=== PATIENT | female | born 1985 ===

== ENCOUNTER 2017-02-10 15:49 | Emergency (ER) | payer MEDICAID ==
[2017-02-10 16:15] VITALS: TEMP 98.5; O2SAT 99
--- NOTE | 2017-02-10 16:25 | ED PDOC ---
HPI: General Adult Time Seen by Provider: 02/10/17 16:14 Chief Complaint (Nursing): Trauma Chief Complaint (Provider): fall down stairs "i may have passed out" History Per: Patient History/Exam Limitations: no limitations Current Symptoms Are (Timing): Still Present Severity: Moderate Additional Complaint(s): 31yo female w/ Hx absent seizures was going up stairs at home when she passed out and fell down a full flight of stairs. States poor recall of events. She was able to ambulate afterwards but with significant pain to left arm, left abdomen, left hip area. Also complains of neck pain and mild headache. Hx is significant for gastric sleeve performed 5 weeks ago. Past Medical History Reviewed: Historical Data, Nursing Documentation, Vital Signs Vital Signs: Last Vital Signs Temp 98.5 F 02/10/17 16:11 Pulse 79 02/10/17 19:27 Resp 16 02/10/17 18:00 BP 128/75 02/10/17 18:00 Pulse Ox 99 02/10/17 21:31 - Medical History PMH: Anxiety, Asthma, Bipolar Disorder, HTN, Seizures (absent seizures, taking Depakote) - Surgical History Surgical History: Cholecystectomy, (x3) Other surgeries: gastric sleeve - Family History Family History: States: [place], CAD (mother diagnosed in her 20s), Diabetes, Hypertension - Home Medications Home Medications: Ambulatory Orders Medication Instructions Recorded Atenolol [Tenormin] 1 tab PO DAILY 08/28/16 Divalproex Sodium [Divalproex 1 tab PO BID 08/28/16 Sodium ER] FLUoxetine [Prozac] 40 mg PO DAILY 08/28/16 Lorazepam [Ativan] 0.5 mg PO PRN PRN 08/28/16 Omeprazole 1 tab PO DAILY 08/28/16 Terbinafine HCl [Lamisil] 1 tab PO DAILY 08/28/16 Acetaminophen/Hydrocodone Bi 1 tab PO Q8 #6 tab 10/10/16 [Vicodin 300 mg-5 mg] Cyclobenzaprine [Cyclobenzaprine 10 mg PO BID #15 tab 10/10/16 HCl] Acetaminophen [Shake That Ache] 2 tab PO Q8H #50 tablet 11/28/16 Cyclobenzaprine [Cyclobenzaprine 10 mg PO TID #30 tab 11/28/16 HCl] Acetaminophen/Hydrocodone Bi 1 tab PO Q8 #12 tab 02/10/17 [Vicodin 300 mg-5 mg] Ibuprofen [Motrin Tab] 600 mg PO Q6 #30 tab 02/10/17 - Allergies Allergies/Adverse Reactions: Allergies Allergy/AdvReac Type Severity Reaction Status Date / Time lamotrigine Allergy URTICARIA Verified 02/10/17 16:09 Review of Systems ROS Statement: Except As Marked, All Systems Reviewed And Found Negative Gastrointestinal: Positive for: Abdominal Pain Musculoskeletal: Positive for: Neck Pain, Arm Pain, Other (hip pain) Neurological: Positive for: Headache Physical Exam - Reviewed Nursing Documentation Reviewed: Yes Vital Signs Reviewed: Yes - Physical Exam Appears: Positive for: Non-toxic, No Acute Distress Head Exam: Positive for: ATRAUMATIC (No sign of head injury), NORMAL INSPECTION , NORMOCEPHALIC Skin: Positive for: Warm, Dry Eye Exam: Positive for: EOMI, PERRL Neck: Positive for: Painless ROM (+ mild tenderness to lower C-spine), Supple Cardiovascular/Chest: Positive for: Regular Rate, Rhythm Respiratory: Positive for: Normal Breath Sounds. Negative for: Rales, Rhonchi, Wheezing Gastrointestinal/Abdominal: Positive for: Soft, Tenderness (left side of abdomen ). Negative for: Guarding, Rebound Extremity: Positive for: Normal ROM (Full ROM to feet & ankles), Tenderness ( left shoulder, left forearm, left hip, left wrist) - Laboratory Results Result Diagrams: 02/10/17 16:20 02/10/17 16:20 - ECG ECG: Positive for: Interpreted By Me, Viewed By Me ECG Rhythm: Positive for: Sinus Rhythm. Negative for: ST/T Changes Rate: 79 O2 Sat by Pulse Oximetry: 99 (RA) Pulse Ox Interpretation: Normal Medical Decision Making Medical Decision Makin: CT Chest, Abdomen, Pelvis w/ IV contrast ordered emergently. CT C-Spine w/o, CT Head w/o, EKG, labs, XR Left Femur, XR Left Elbow, XR Left forearm, XR left hand , XR Left shoulder, XR Left wrist, XR Left humerus ordered. Morphine 2mg IV given. 1730 CT Head w/o Impression No acute intracranial pathology identified. 174 CT C-Spine w/o Impression: No evidence of acute displaced fracture or subluxation at the cervical spine. No evidence of prevertebral soft tissue swelling. 175 CT Chest/Abdomen/Pelvis w/ IV contrast Impression: No acute traumatic pathology identified. Limited study as above. Hepatic steatosis. Cholecystectomy. Evidence of prior gastric surgery. Probable 19 mm left ovarian cyst. 1899 XR reviewed by me. No fracture seen on my review. Patient still complains of back pain and left abdominal pain. Will keep in ED for observation and further medication. Total CK ordered. Will endorse to Dr. Wong to reevaluate and consider admitting for intractable pain vs potential discharge. Disposition - Clinical Impression Clinical Impression: Trauma - Patient ED Disposition Is Patient to be Admitted: Transfer of Care - Disposition Referrals: Salvador Lucero MD [Family Provider] - Disposition: Transfer of Care Disposition Time: 19:00 Condition: STABLE Prescriptions: Acetaminophen/Hydrocodone Bi [Vicodin 300 mg-5 mg] 1 tab PO Q8 #12 tab Ibuprofen [Motrin Tab] 600 mg PO Q6 #30 tab Instructions: Narcotic Pain Management (ED), Contusion in Adults (DC), Fall Prevention (ED) Patient Signed Over To: Christian Wong Handoff Comments: pending re-eval and dispo Additional Comments - Additional Comments Additional Comments: Scribe Attestation: Documented by Rios Pereyra acting as a scribe for Tracey Eldridge DO. Provider Scribe Attestation: All medical record entries made by the Scribe were at my direction and personally dictated by me. I have reviewed the chart and agree that the record accurately reflects my personal performance of the history, physical exam, medical decision making, and the department course for this patient. I have also personally directed, reviewed, and agree with the discharge instructions and disposition.
[2017-02-10] MEDS ORDERED: Iohexol 300 100 ML IJ ONE (16:26)
[2017-02-10] MEDS ORDERED: Sodium Chloride 0.9% 50 ML IV ONE (16:26)
[2017-02-10 16:31] LABS: BASO % 0.7 % (0.0-2.0); EOS # 0.1 K/uL (0.0-0.7); EOS % 1.8 % (0.0-4.0); HEMATOCRIT 36.5 % (34.0-47.0); LYMPH # 1.6 K/uL (1.0-4.3); LYMPH % 29.4 % (20.0-40.0); MEAN CELL VOLUME 81.4 fl (81.0-99.0); MEAN CORPUSCULAR HEMOGLOBIN 25.9 pg (27.0-31.0); MEAN CORPUSCULAR HGB CONC 31.8 g/dL (33.0-37.0); MEAN PLATELET VOLUME 10.6 fl (7.2-11.7); MONO # 0.4 K/uL (0.0-0.8); MONO % 7.7 % (0.0-10.0); NEUT # 3.2 K/uL (1.8-7.0); NEUT % 60.4 % (50.0-75.0); NRBC % 0.1 % (0.0-0.0); RED CELL DISTRIBUTION WIDTH 18.8 % (11.5-14.5); WHITE BLOOD COUNT 5.3 K/uL (4.8-10.8)
[2017-02-10 16:39] VITALS: PULSE 79
[2017-02-10 16:40] LABS: CHLORIDE 109 mmol/L (98-107); SODIUM 140 mmol/l (132-148)
[2017-02-10 16:41] LABS: POTASSIUM 4.3 MMOL/L (3.6-5.0)
[2017-02-10 16:42] LABS: GFR AFRICAN-AMERICAN > 60
[2017-02-10 16:43] LABS: ALB/GLOB RATIO 1.2 (1.0-2.1); ALKALINE PHOSPHATASE 93 U/L (38-126); AST/SGOT 48 U/L (14-36); BILIRUBIN,TOTAL 0.5 mg/dl (0.2-1.3); BLOOD UREA NITROGEN 14 mg/dl (7-17); CALCIUM 9.5 mg/dL (8.4-10.2); CARBON DIOXIDE 20 mmol/L (22-30); GLUCOSE,RANDOM 89 mg/dL (65-105)
[2017-02-10 16:44] LABS: ALT/SGPT 80 U/L (9-52)
[2017-02-10 16:55] LABS: PARTIAL THROMBOPLASTIN TIME 24.7 SECONDS (23.3-32.5)
--- NOTE | 2017-02-10 17:28 | CT ---
PROCEDURE: CT HEAD WITHOUT CONTRAST. HISTORY: r/o ICH COMPARISON: None available. TECHNIQUE: Axial computed tomography images were obtained through the head/brain without intravenous contrast. Radiation dose: Total exam DLP = 843.16 mGy-cm. This CT exam was performed using one or more of the following dose reduction techniques: Automated exposure control, adjustment of the mA and/or kV according to patient size, and/or use of iterative reconstruction technique. FINDINGS: HEMORRHAGE: No intracranial hemorrhage. BRAIN: No mass effect or edema. No atrophy or chronic microvascular ischemic changes.Please note that MRI with diffusion imaging is more sensitive in the detection of acute ischemic event. VENTRICLES: No hydrocephalus. CALVARIUM: Unremarkable. PARANASAL SINUSES: Unremarkable as visualized. No significant inflammatory changes. MASTOID AIR CELLS: Unremarkable as visualized. No inflammatory changes. OTHER FINDINGS: None. IMPRESSION: No acute intracranial pathology identified.
--- NOTE | 2017-02-10 17:43 | CT ---
PROCEDURE: CT Cervical Spine without contrast HISTORY: Trauma pole of fracture fold down stairs COMPARISON: None available. TECHNIQUE: Axial computed tomography images were obtained of the cervical spine without the use of intravenous contrast. Coronal and sagittal reformatted images were created and reviewed. Radiation dose: Total exam DLP = 671.68 mGy-cm. This CT exam was performed using one or more of the following dose reduction techniques: Automated exposure control, adjustment of the mA and/or kV according to patient size, and/or use of iterative reconstruction technique. FINDINGS: VERTEBRAE: No fracture. Normal alignment. No destructive bony lesion. DISCS/SPINAL CANAL/NEURAL FORAMINA: No significant central canal or neural foraminal stenosis. Discs heights are grossly preserved. PARASPINAL SOFT TISSUES: Unremarkable. OTHER FINDINGS: None. IMPRESSION: No evidence of acute displaced fracture or subluxation at the cervical spine. No evidence of prevertebral soft tissue swelling.
--- NOTE | 2017-02-10 17:50 | CT ---
CT chest, abdomen, and pelvis without IV contrast Indication: fall down stairs, L abd pain; recent gastric sleev Technique: Contiguous axial images of the chest, abdomen, and pelvis without oral or IV contrast. Coronal and Sagittal reformats generated and reviewed. This CT exam was performed using 1 or more of the falling dose reduction techniques: Automated exposure control, adjustment of the MAA and/or kV according to patient size, and/or use of iterative reconstruction technique. Radiation dose: Total exam DLP = 1452.41 MGy-cm. Comparison: None available Findings: Examination limited due to patient inability to elevate arms resulting in streak artifact. Visualized portions of the inferior thyroid gland appear unremarkable. The unenhanced mediastinal and hilar vascular structures appear grossly unremarkable. The heart appears within normal limits of size. Bibasilar atelectasis. No pleural effusion. No pneumothorax. No suspicious pulmonary nodules measuring greater than 5 mm. Hypoattenuation of the liver compatible with hepatic steatosis. Cholecystectomy. The noncontrast liver, spleen, kidneys, pancreas, and adrenal glands appear otherwise unremarkable. The stomach is nondistended. Evidence of prior gastric surgery. Lack of oral contrast limits evaluation for bowel pathology. The bowel loops appear within normal limits of caliber without evidence of intestinal obstruction. The appendix appears within normal limits of caliber. No secondary signs of acute appendicitis. There is no definite free air. Uterus is present. Probable left adnexal cyst measuring approximately 19 mm, likely ovarian in etiology. The urinary bladder appears unremarkable. Small fat containing umbilical hernia. No acute osseous abnormality is detected. Impression: No acute traumatic pathology identified. Limited study as above. Hepatic steatosis. Cholecystectomy. Evidence of prior gastric surgery. Probable 19 mm left ovarian cyst. Additional incidental findings as above.
[2017-02-10 18:52] VITALS: BP 128/75; RESP 16
--- NOTE | 2017-02-10 19:33 | ED PDOC ---
- Laboratory Results Result Diagrams: 02/10/17 16:20 02/10/17 16:20 - ECG O2 Sat by Pulse Oximetry: 99 (RA) Pulse Ox Interpretation: Normal Medical Decision Making Medical Decision Makin signed over to me by Tracey Eldridge DO pending reevaluation. 2125 Patient is feeling much better. Will prescribe short course of opioids for pain management. Discussed risks including potential for addiction. Discussed alternatives including motrin & tylenol. Searched patient in [place], [place] and surrounding states checked, reference # [id number]. Patient will follow up for further care with PMD by the end of the week. Disposition - Clinical Impression Clinical Impression: Trauma - POA Present On Arrival: None - Disposition Referrals: Salvador Lucero MD [Family Provider] - Disposition: Routine/Home Disposition Time: 21:31 Condition: STABLE Prescriptions: Acetaminophen/Hydrocodone Bi [Vicodin 300 mg-5 mg] 1 tab PO Q8 #12 tab Ibuprofen [Motrin Tab] 600 mg PO Q6 #30 tab Instructions: Narcotic Pain Management (ED), Contusion in Adults (DC), Fall Prevention (ED) Additional Comments - Additional Comments Additional Comments: Scribe Attestation: Documented by Rios Pereyra acting as a scribe for Shola Wong MD. Provider Scribe Attestation: All medical record entries made by the Scribe were at my direction and personally dictated by me. I have reviewed the chart and agree that the record accurately reflects my personal performance of the history, physical exam, medical decision making, and the department course for this patient. I have also personally directed, reviewed, and agree with the discharge instructions and disposition.
--- NOTE | 2017-02-11 11:44 | CARD ---
APPROVED REPORT EKG Measurement Heart [id number] <Conclusion> Normal sinus rhythm Normal ECG
--- NOTE | 2017-02-11 12:56 | RAD ---
PROCEDURE: Radiographs of the left humerus. HISTORY: fall COMPARISON: Comparison made with concurrent radiographs left shoulder FINDINGS: BONES: Normal. No fracture or focal lesion. SOFT TISSUES: Normal. OTHER FINDINGS: None. IMPRESSION: Normal radiographs of left humerus.
--- NOTE | 2017-02-11 13:01 | RAD ---
PROCEDURE: Radiographs of the Left Shoulder HISTORY: fall trauma COMPARISON: Concurrent radiographs left humerus and prior radiographs left shoulder 11/28/2016 FINDINGS: BONES: Normal. No fracture. JOINTS: Normal. Glenohumeral and acromioclavicular joints preserved. No osteoarthritis. SOFT TISSUES: Normal. OTHER FINDINGS: None. IMPRESSION: Normal radiographs of the left shoulder.
--- NOTE | 2017-02-11 13:02 | RAD ---
PROCEDURE: Left femur. HISTORY: fall trauma COMPARISON: Comparison made with radiographs of pelvis left hip 11/28/2016. TECHNIQUE: AP and lateral views of the left femur performed FINDINGS: . No evidence of acute displaced fracture nor dislocation. The osseous structures appear intact. Left femoral head is appropriately located within the left acetabulum. No significant osteoarthritis. No radiopaque foreign body seen within the soft tissues. Note made of opacifications urinary bladder secondary to prior injection of contrast material for CT scan chest abdomen pelvis obtained earlier same day. IMPRESSION: No fracture seen. Reason
--- NOTE | 2017-02-11 13:04 | RAD ---
PROCEDURE: Radiographs of the left elbow. HISTORY: fall trauma COMPARISON: Comparison made with the concurrent radiographs of the left forearm and left humerus. FINDINGS: BONES: Normal. No fracture. JOINTS: Normal. No osteoarthritis. SOFT TISSUES: Normal. JOINT EFFUSION: None. OTHER FINDINGS: None IMPRESSION: Unremarkable radiographs of the left elbow.
--- NOTE | 2017-02-11 13:09 | RAD ---
PROCEDURE: Radiographs of the Left Forearm HISTORY: fall trauma COMPARISON: Comparison made with concurrent radiographs of the left wrist and left elbow. TECHNIQUE: Frontal and lateral views obtained. FINDINGS: BONES: No fracture or destructive lesion. JOINT SPACES: Unremarkable. OTHER FINDINGS: None. IMPRESSION: Unremarkable radiographs of the left forearm.
--- NOTE | 2017-02-11 13:15 | RAD ---
PROCEDURE: Left Hand Radiographs. HISTORY: fall trauma COMPARISON: NoneComparison made with concurrent radiographs of the left wrist the. FINDINGS: BONES: Normal. No fracture. JOINTS: Normal. No osteoarthritic changes. SOFT TISSUES: Normal. OTHER FINDINGS: None. IMPRESSION: No acute fracture seen. If symptoms persist or occult fracture suspected clinically well, consider repeat radiographs in 5-10 days as most fractures should become radiographically evident in this timeframe
--- NOTE | 2017-02-11 13:20 | RAD ---
PROCEDURE: Left Wrist Radiographs. HISTORY: fall trauma COMPARISON: None. FINDINGS: BONES: Normal. No fracture. JOINTS: Normal. No dislocation. SOFT TISSUES: Normal. OTHER FINDINGS: None. IMPRESSION: No acute displaced fracture nor dislocation. If symptoms persist or occult fracture suspected clinically recommend repeat radiographs in 5-10 days as most fractures should become radiographically evident in this timeframe.
== END 2017-02-10 21:51 | disposition home or self-care (01) ==
LOC: H.ER 15:49
DX: S69.92XA Unspecified injury of left wrist, hand and finger(s), initial encounter (principal); M25.552 Pain in left hip; M54.2 Cervicalgia; R51 Headache; M79.602 Pain in left arm; W10.9XXA Fall (on) (from) unspecified stairs and steps, initial encounter; Y92.89 Other specified places as the place of occurrence of the external cause; F31.9 Bipolar disorder, unspecified; F41.9 Anxiety disorder, unspecified; I10 Essential (primary) hypertension; J45.909 Unspecified asthma, uncomplicated; N83.202 Unspecified ovarian cyst, left side

== ENCOUNTER 2017-03-28 12:46 | Emergency (ER) | payer MEDICAID ==
[2017-03-28 12:57] VITALS: BP 141/103; PULSE 89; RESP 16; TEMP 98; O2SAT 100
--- NOTE | 2017-03-28 15:01 | ED PDOC ---
HPI: Psych/Substance Abuse Time Seen by Provider: 03/28/17 12:46 Chief Complaint (Nursing): Psychiatric Evaluation Chief Complaint (Provider): Psychiatric Evaluation History Per: Patient History/Exam Limitations: no limitations Onset/Duration Of Symptoms: Days (x4 months) Current Symptoms Are (Timing): Still Present Additional Complaint(s): Jess Moulton is a 32 year old female with a previous history of bipolar depression, who presents to the emergency department for a psychiatric evaluation after referred by a friend who knew this hospital provided psychiatric help because her appointment is one month from now. She reports "feeling off", angry and aggressive. States she had not been compliant with medications after her last visit with psychiatrist due to work complications. Patient lives with her mother and states mother does not understand she has a problem and agitates her. Denies suicidal or homicidal ideation. Of note, patient takes Prozac 20mg three times a day and Klonopin 1mg once daily (Has been on medication for one year). Psychiatrist: Rosalino Hutchins MD Past Medical History Reviewed: Historical Data, Nursing Documentation, Vital Signs Vital Signs: Last Vital Signs Temp 98.0 F 03/28/17 12:50 Pulse 89 03/28/17 12:50 Resp 16 03/28/17 12:50 BP 141/103 H 03/28/17 12:50 Pulse Ox 100 03/28/17 12:50 - Medical History PMH: Anxiety, Asthma, Bipolar Disorder, HTN, Seizures (absent seizures, taking Depakote) Denies: Diabetes, Hepatitis, HIV, Sexually Transmitted Disease - Surgical History Surgical History: Cholecystectomy, (x3) - Family History Family History: States: [place], CAD (mother diagnosed in her 20s), Diabetes, Hypertension - Living Arrangements Living Arrangements: With Family - Social History Current smoker - smoking cessation education provided: No Alcohol: None Drugs: Denies - Home Medications Home Medications: Ambulatory Orders Medication Instructions Recorded Atenolol [Tenormin] 1 tab PO DAILY 08/28/16 Divalproex Sodium [Divalproex 1 tab PO BID 08/28/16 Sodium ER] FLUoxetine [Prozac] 40 mg PO DAILY 08/28/16 Lorazepam [Ativan] 0.5 mg PO PRN PRN 08/28/16 Omeprazole 1 tab PO DAILY 08/28/16 Terbinafine HCl [Lamisil] 1 tab PO DAILY 08/28/16 Acetaminophen/Hydrocodone Bi 1 tab PO Q8 #6 tab 10/10/16 [Vicodin 300 mg-5 mg] Cyclobenzaprine [Cyclobenzaprine 10 mg PO BID #15 tab 10/10/16 HCl] Acetaminophen [Shake That Ache] 2 tab PO Q8H #50 tablet 11/28/16 Cyclobenzaprine [Cyclobenzaprine 10 mg PO TID #30 tab 11/28/16 HCl] Acetaminophen/Hydrocodone Bi 1 tab PO Q8 #12 tab 02/10/17 [Vicodin 300 mg-5 mg] Ibuprofen [Motrin Tab] 600 mg PO Q6 #30 tab 02/10/17 - Allergies Allergies/Adverse Reactions: Allergies Allergy/AdvReac Type Severity Reaction Status Date / Time lamotrigine Allergy URTICARIA Verified 02/10/17 16:09 Review of Systems ROS Statement: Except As Marked, All Systems Reviewed And Found Negative Psych: Positive for: Other (Mood: angry and feels aggressive at times). Negative for: Suicidal ideation (denies suicidal ideation along with homicidal ideation) Physical Exam - Reviewed Nursing Documentation Reviewed: Yes Vital Signs Reviewed: Yes - Physical Exam Head Exam: Positive for: ATRAUMATIC, NORMAL INSPECTION, NORMOCEPHALIC Skin: Positive for: Normal Color, Warm, Dry Neck: Positive for: Normal, Painless ROM, Supple Neurologic/Psych: Positive for: Alert, Oriented - ECG O2 Sat by Pulse Oximetry: 100 (RA) Pulse Ox Interpretation: Normal Medical Decision Making Medical Decision Making: Initial Impression: Psychiatric Evaluation Initial Plan: --Klonopin 1mg PO --Reevaluation Time: 15:01 Upon provider reevaluation patient is medically stable, and requires no further treatment in the ED at this time. Patient will be discharged home. Counseling was provided and all questions were answered regarding diagnosis and need for follow up with psychiatrist and [facility] LOCATED AT [address] [place] [address] ([phone]). There is agreement to discharge plan. Return if symptoms persist or worsen. Clinical Impression: Anxiety Scribe Attestation: Documented by Manjula Veloz acting as a scribe for ABRIL Adams. Scribe Attestation: All medical record entries made by the Scribe were at my direction and personally dictated by me. I have reviewed the chart and agree that the record accurately reflects my personal performance of the history, physical exam, medical decision making, and the department course for this patient. I have also personally directed, reviewed, and agree with the discharge instructions and disposition. Disposition - Clinical Impression Clinical Impression: Anxiety - Patient ED Disposition Is Patient to be Admitted: No Doctor Will See Patient In The: Office Counseled Patient/Family Regarding: Diagnosis, Rx Given - Disposition Disposition: Routine/Home Disposition Time: 15:01 Condition: FAIR Additional Instructions: FOLLOW UP AT [facility] LOCATED AT [address] [place] [address] Instructions: Anxiety (ED)
== END 2017-03-28 15:28 | disposition home or self-care (01) ==
LOC: H.ER 12:46
DX: F41.9 Anxiety disorder, unspecified (principal)

== ENCOUNTER 2017-05-03 20:21 | Emergency (ER) | payer MEDICAID ==
[2017-05-03 20:37] VITALS: O2SAT 100
[2017-05-03] MEDS ORDERED: Sodium Chloride 0.9% 1,000 ML IV STA (21:04)
--- NOTE | 2017-05-03 21:18 | ED PDOC ---
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 Patient reports having an argument with her mother when she left the house for a walk. Patient recalls starting to light a cigarette but the next thing she remembers is waking up on the floor with headache and lower back pain. Upon waking, she felt dizzy and disoriented but denies tongue biting or incontinence. Headache is left sided and "achy" with no associated visual disturbances or focal weakness. Back pain starts in the left lumbar area and radiates posteriorly to the left foot, "sharp " in quality and exacerbated by movement. Patient reports seizures varying between grand mal and absence. Her last seizure episode occurred 2 months ago. She has been taking depakote as prescribed by her neurologist. <Harpreet Kelsey - Last Filed: 05/03/17 23:21> <Adalberto Gonzalez - Last Filed: 05/03/17 23:28> Time Seen by Provider: 05/03/17 20:36 Chief Complaint (Nursing): Syncope Supervising Attending Note - Supervising Attending Note The Documented history was done by the: Physician Site Administrator The documented physical exam was done by the: Physician Site Administrator The documented procedures were done by the: Physician Site Administrator - Attestation: I have personally seen and examined this patient.: Yes I have fully participated in the care of the patient.: Yes I have reviewed all pertinent clinical information: Yes - Notes: Notes:: Syncope episode. No chest pain, dyspnea, weakness. Pain lumbar. <Adalberto Gonzalze - Last Filed: 05/03/17 23:28> Past Medical History Vital Signs: Last Vital Signs Temp 98 F 05/03/17 20:31 Pulse 104 H 05/03/17 20:31 Resp 18 05/03/17 20:31 BP 148/71 05/03/17 20:31 Pulse Ox 100 05/03/17 20:31 - Medical History PMH: Anxiety, Asthma, Bipolar Disorder, HTN, Seizures (absent seizures, taking Depakote) Denies: Diabetes, Hepatitis, HIV, Sexually Transmitted Disease - Surgical History Surgical History: Cholecystectomy, (x3) - Family History Family History: States: [place], CAD (mother diagnosed in her 20s), Diabetes, Hypertension <Harpreet Kelsey - Last Filed: 05/03/17 23:21> Vital Signs: Last Vital Signs Temp 98 F 05/03/17 20:31 Pulse 104 H 05/03/17 20:31 Resp 18 05/03/17 20:31 BP 148/71 05/03/17 20:31 Pulse Ox 100 05/03/17 23:22 <Adalberto Gonzalez - Last Filed: 05/03/17 23:28> - Home Medications Home Medications: Ambulatory Orders Medication Instructions Recorded Atenolol [Tenormin] 1 tab PO DAILY 08/28/16 Divalproex Sodium [Divalproex 1 tab PO BID 08/28/16 Sodium ER] FLUoxetine [Prozac] 40 mg PO DAILY 08/28/16 Lorazepam [Ativan] 0.5 mg PO PRN PRN 08/28/16 Omeprazole 1 tab PO DAILY 08/28/16 Terbinafine HCl [Lamisil] 1 tab PO DAILY 08/28/16 Acetaminophen/Hydrocodone Bi 1 tab PO Q8 #6 tab 10/10/16 [Vicodin 300 mg-5 mg] Cyclobenzaprine [Cyclobenzaprine 10 mg PO BID #15 tab 10/10/16 HCl] Acetaminophen [Shake That Ache] 2 tab PO Q8H #50 tablet 11/28/16 Cyclobenzaprine [Cyclobenzaprine 10 mg PO TID #30 tab 11/28/16 HCl] Acetaminophen/Hydrocodone Bi 1 tab PO Q8 #12 tab 02/10/17 [Vicodin 300 mg-5 mg] Ibuprofen [Motrin Tab] 600 mg PO Q6 #30 tab 02/10/17 - Allergies Allergies/Adverse Reactions: Allergies Allergy/AdvReac Type Severity Reaction Status Date / Time ketorolac [From Toradol] Allergy URTICARIA Verified 05/03/17 21:19 lamotrigine Allergy URTICARIA Verified 02/10/17 16:09 Review of Systems Constitutional: Negative for: Fever, Chills Eyes: Negative for: Vision Change Cardiovascular: Positive for: Chest Pain. Negative for: Edema Respiratory: Negative for: Cough, Shortness of Breath, Wheezing Gastrointestinal: Negative for: Nausea, Vomiting, Abdominal Pain, Diarrhea Psych: Positive for: Anxiety. Negative for: Suicidal ideation <MuluChau [place] - Last Filed: 05/03/17 23:21> Physical Exam - Physical Exam Appears: Positive for: No Acute Distress, Uncomfortable Head Exam: Positive for: ATRAUMATIC (No contusions or lacerations noted on scalp ), NORMAL INSPECTION, NORMOCEPHALIC Eye Exam: Positive for: Normal appearance, EOMI, PERRL Neck: Positive for: Pain On Movement Of Neck Cardiovascular/Chest: Positive for: Tachycardia, Other (Regular rhythm. ). Negative for: Murmur Respiratory: Positive for: Normal Breath Sounds. Negative for: Crackles, Rales , Rhonchi, Wheezing, Respiratory Distress Pulses-Radial (L): 2+ Pulses-Radial (R): 2+ Gastrointestinal/Abdominal: Positive for: Normal Exam, Bowel Sounds, Soft. Negative for: Tenderness, Distended, Guarding Back: Positive for: Other (Left lumbar paraspinal tenderness.) Extremity: Negative for: Pedal Edema, Calf Tenderness Neurologic/Psych: Positive for: Alert, catalogue compiler II-XII (grossly intact), Oriented (x3 ), Mood/Affect (appears sad and tearful). Negative for: Facial Droop <MulujosefaHarpreet - Last Filed: 05/03/17 23:21> - Physical Exam Cardiovascular/Chest: Positive for: Regular Rate, Rhythm Respiratory: Positive for: Normal Breath Sounds Neurologic/Psych: Positive for: Alert, catalogue compiler II-XII, Oriented. Negative for: Motor/Sensory Deficits, Mood/Affect <Adalberto Gonzalez M - Last Filed: 05/03/17 23:28> - Laboratory Results Result Diagrams: 05/03/17 21:17 05/03/17 21:17 - ECG O2 Sat by Pulse Oximetry: 100 - Progress ED Course And Treament: 21:00 CT head/neck Lumbar Xray EKG CBC, CMP, CPK, Lactate, Depakote level, Troponin, Serum ETOH, UDS Tylenol 650mg PO 23:15 CT neck reveals no acute fractures or dislocations CT head shows no intracranial hemorrhage CBC, CMP, CPK, Lactate, Troponin WNL. Depakote level <10. Depakote 1000mg ordered <MuluHarpreet rivero - Last Filed: 05/03/17 23:21> - Laboratory Results Result Diagrams: 05/03/17 21:17 05/03/17 21:17 Interpretation Of Abn Labs: coccaine; low valproic acid - ECG ECG: Positive for: Interpreted By Me, Viewed By Me ECG Rhythm: Positive for: Normal QRS, Normal ST Segment, Sinus Rhythm Pulse Ox Interpretation: Normal - CT Scan/US ct Other Rad Studies (CT/US): Read By Radiologist Other Rad Interpretation: no acte - Progress ED Course And Treament: 2326: Stable. AAOx3. Ambulated with no issues. Pt. states she did not take her meds today. Will give today dose of depakote. Pain free. Tolerated po. <Adalberto Gonzalez - Last Filed: 05/03/17 23:28> Disposition - Patient ED Disposition Is Patient to be Admitted: No Counseled Patient/Family Regarding: Studies Performed, Need For Followup - Disposition Disposition: Routine/Home Disposition Time: 23:20 <Harpreet Kelsey - Last Filed: 05/03/17 23:21> - Patient ED Disposition Is Patient to be Admitted: No Counseled Patient/Family Regarding: Studies Performed, Diagnosis, Need For Followup - Disposition Disposition: Routine/Home <Adalberto Gonzalez - Last Filed: 05/03/17 23:28> - Clinical Impression Clinical Impression: Syncope, Cocaine abuse - Disposition Referrals: Salvador Lucero MD [Family Provider] - 05/05/17 Condition: IMPROVED Additional Instructions: Follow up with your PCP and neurologist after discharge Instructions: Syncope (ED), Polysubstance Abuse (ED)
[2017-05-03 21:28] LABS: BASO % 0.6 % (0.0-2.0); EOS # 0.2 K/uL (0.0-0.7); EOS % 3.2 % (0.0-4.0); HEMOGLOBIN 11.1 g/dL (12.0-16.0); LYMPH # 1.3 K/uL (1.0-4.3); LYMPH % 26.3 % (20.0-40.0); MEAN CELL VOLUME 81.4 fl (81.0-99.0); MEAN CORPUSCULAR HEMOGLOBIN 26.3 pg (27.0-31.0); MEAN CORPUSCULAR HGB CONC 32.3 g/dL (33.0-37.0); MEAN PLATELET VOLUME 10.2 fl (7.2-11.7); MONO # 0.3 K/uL (0.0-0.8); MONO % 6.7 % (0.0-10.0); NEUT # 3.1 K/uL (1.8-7.0); NEUT % 63.2 % (50.0-75.0); NRBC % 0.1 % (0.0-0.0); RBC 4.22 Mil/uL (3.80-5.20); RED CELL DISTRIBUTION WIDTH 16.7 % (11.5-14.5); WHITE BLOOD COUNT 4.9 K/uL (4.8-10.8)
[2017-05-03 21:39] LABS: ALB/GLOB RATIO 1.2 (1.0-2.1); ALBUMIN 3.9 g/dL (3.5-5.0); ALT/SGPT 51 U/L (9-52); AST/SGOT 36 U/L (14-36); BLOOD UREA NITROGEN 13 mg/dl (7-17); GFR AFRICAN-AMERICAN > 60; GFR NON-AFRICAN AMERICAN > 60
[2017-05-03 21:44] LABS: BARBITURATES, UR NEGATIVE (NEGATIVE); BENZODIAZEPINES, UR NEGATIVE (NEGATIVE); OPIATES, UR NEGATIVE (NEGATIVE); PHENCYCLIDINE, UR NEGATIVE (NEGATIVE)
--- NOTE | 2017-05-03 22:33 | CT ---
EXAM: CT Head Without Intravenous Contrast CLINICAL HISTORY: 32 years old, female; Injury or trauma; Fall; Initial encounter; Laceration; Consciousness not specified; Without residual foreign body; Head, generalized; Injury date: Today; Injury details: Seizured and falling. HTN bipolar; Additional info: Headache TECHNIQUE: Axial computed tomography images of the head/brain without intravenous contrast. This CT exam was performed using one or more of the following dose reduction techniques: automated exposure control, adjustment of the mA and/or kV according to patient size, and/or use of iterative reconstruction technique. Coronal and sagittal reformatted images were created and reviewed. COMPARISON: CT - HEAD W/O CONTRAST 02/10/2017 4:50:04 PM FINDINGS: Brain: No intracranial hemorrhage. No mass. No edema. Ventricles: No hydrocephalus. Bones/joints: No acute fracture. Soft tissues: Unremarkable. Sinuses: No acute sinusitis. Mastoid air cells: No mastoid effusion. Orbits: Unremarkable as visualized. IMPRESSION: 1. No intracranial hemorrhage. 2. Incidental/non-acute findings are described above.
--- NOTE | 2017-05-03 22:35 | CT ---
EXAM: CT Cervical Spine Without Intravenous Contrast CLINICAL HISTORY: 32 years old, female; Injury or trauma; Fall; Initial encounter; Laceration; Without foreign body; Injury date: Today; Injury details: Seizured and falling. HTN bipolar; Additional info: Neck pain TECHNIQUE: Axial computed tomography images of the cervical spine without intravenous contrast. This CT exam was performed using one or more of the following dose reduction techniques: automated exposure control, adjustment of the mA and/or kV according to patient size, and/or use of iterative reconstruction technique. Coronal and sagittal reformatted images were created and reviewed. COMPARISON: CT - CERVICAL SPINE W/O CONTRAST 02/10/2017 4:52:58 PM FINDINGS: Vertebrae: No acute fracture. Straightening of cervical spine. Discs/spinal canal/neural foramina: No significant spinal canal stenosis. Soft tissues: Unremarkable. Lung apices: Unremarkable as visualized. IMPRESSION: 1. No fracture. 2. Incidental/non-acute findings are described above.
[2017-05-03] MEDS ORDERED: Divalproex 500 mg DR(BID formulation) PO ONE (23:14)
[2017-05-03 23:43] VITALS: BP 125/80; PULSE 75; RESP 16; TEMP 98.1
--- NOTE | 2017-05-04 11:09 | CARD ---
APPROVED REPORT EKG Measurement Heart [id number] OR 142P45 [id number] <Conclusion> Normal sinus rhythm Normal ECG
--- NOTE | 2017-05-04 14:27 | RAD ---
PROCEDURE: Radiographs of the Lumbar Spine. HISTORY: back pain COMPARISON: No prior. FINDINGS: BONES: Normal alignment. No listhesis. No fracture. DISC SPACES: Unremarkable. OTHER FINDINGS: None. IMPRESSION: Unremarkable radiographs of the lumbar spine.
== END 2017-05-03 23:43 | disposition home or self-care (01) ==
LOC: H.ER 20:21
DX: R55 Syncope and collapse (principal); F14.10 Cocaine abuse, uncomplicated; F31.9 Bipolar disorder, unspecified; F41.9 Anxiety disorder, unspecified; I10 Essential (primary) hypertension

== ENCOUNTER 2017-11-29 15:46 | Emergency (ER) | payer MEDICAID ==
[2017-11-29 15:59] VITALS: RESP 16
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
[2017-11-29 17:58] LABS: BASO % 0.4 % (0.0-2.0); EOS # 0.3 K/uL (0.0-0.7); EOS % 6.2 % (0.0-4.0); HEMOGLOBIN 9.3 g/dL (12.0-16.0); LYMPH % 21.3 % (20.0-40.0); MEAN CORPUSCULAR HEMOGLOBIN 26.7 pg (27.0-31.0); MEAN CORPUSCULAR HGB CONC 31.8 g/dL (33.0-37.0); MEAN PLATELET VOLUME 8.7 fl (7.2-11.7); MONO # 0.4 K/uL (0.0-0.8); MONO % 8.3 % (0.0-10.0); NEUT # 2.9 K/uL (1.8-7.0); NEUT % 63.8 % (50.0-75.0); NRBC % 0.1 % (0.0-0.0); RBC 3.47 Mil/uL (3.80-5.20); RED CELL DISTRIBUTION WIDTH 19.1 % (11.5-14.5); WHITE BLOOD COUNT 4.5 K/uL (4.8-10.8)
[2017-11-29 18:08] LABS: ALB/GLOB RATIO 1.2 (1.0-2.1); ALBUMIN 3.8 g/dL (3.5-5.0); ALT/SGPT 32 U/L (9-52); AST/SGOT 24 U/L (14-36); BLOOD UREA NITROGEN 14 mg/dl (7-17); CALCIUM 9.1 mg/dL (8.4-10.2); GFR AFRICAN-AMERICAN > 60; GFR NON-AFRICAN AMERICAN > 60
[2017-11-29 18:10] LABS: SQUAMOUS EPITHIAL 2 /hpf (0-5); URINE BACTERIA RARE (<OCC); URINE BILIRUBIN NEGATIVE (NEGATIVE); URINE BLOOD NEGATIVE (NEGATIVE); URINE CLARITY CLOUDY (Clear); URINE COLOR YELLOW (YELLOW); URINE GLUCOSE (UA) NEG (Normal); URINE LEUKOCYTE ESTERASE TRACE Leu/uL (Negative); URINE NITRATE POSITIVE (NEGATIVE); URINE PROTEIN NEGATIVE (NEGATIVE); URINE UROBILINOGEN 0.2-1.0 mg/dL (0.2-1.0)
[2017-11-29 18:14] LABS: ACETAMINOPHEN < 10.0 ug/ml (10.0-30.0); SALICYLATE < 1.0 mg/dl
[2017-11-29 18:15] LABS: BARBITURATES, UR NEGATIVE (NEGATIVE); BENZODIAZEPINES, UR NEGATIVE (NEGATIVE); OPIATES, UR NEGATIVE (NEGATIVE); PHENCYCLIDINE, UR NEGATIVE (NEGATIVE)
[2017-11-29 22:48] VITALS: PULSE 75
--- NOTE | 2017-11-30 00:17 | ED PDOC ---
- Laboratory Results Result Diagrams: 11/29/17 17:54 11/29/17 17:54 Urine POC: Negative Urine dip results: Positive for: Nitrate ((+) WBC) - ECG O2 Sat by Pulse Oximetry: 95 (RA) Pulse Ox Interpretation: Normal Medical Decision Making Medical Decision Making: Case endorsed to NORI Padilla at 0000 pending [facility] screening. Patient was already treated for UTI in ED with Macrobid and cleared for CRISIS evaluation. Pertinent details reviewed. 0100 Patient sleeping comfortably in ED bed. No acute distress. 0200 [facility] screener at bedside. 0245 Patient does not meet criteria for involuntary admission and was cleared for discharge by [facility] screener with outpatient follow up with psychiatry. Patient instructed to follow-up with pmd / referral provided / the clinic in 1- 2 days without fail. Advised to take medication as prescribed. Return to the emergency room at any time for any new or worsening symptoms. Patient states he/ she fully agrees with and understands discharge instructions. States that he/ she agrees with the plan and disposition. Verbalized and repeated discharge instructions and plan. I have given the patient opportunity to ask any additional questions. Disposition Counseled Patient/Family Regarding: Diagnosis, Need For Followup, Rx Given - Clinical Impression Clinical Impression: Encounter for psychiatric assessment, Bipolar disorder, UTI (urinary tract infection) - POA Present On Arrival: None - Disposition Referrals: Linda Goodman MD [Medical Doctor] - Disposition: Routine/Home Disposition Time: 02:42 Condition: FAIR Prescriptions: Nitrofurantoin Macrocrystals [Macrobid] 100 mg PO BID #14 cap Instructions: Urinary Tract Infections in Adults, Bipolar Disorder (DC) Forms: [facility] (Nigerien) Print Language: COMORAN Results - Lab Results Lab Results: 11/29/17 11/29/17 11/29/17 17:54 17:54 17:54 WBC 4.5 L RBC 3.47 L Hgb 9.3 L Hct 29.1 L MCV 84.0 D MCH 26.7 L MCHC 31.8 L RDW 19.1 H Plt Count 178 MPV 8.7 Neut % (Auto) 63.8 Lymph % (Auto) 21.3 [place] % (Auto) 8.3 Eos % (Auto) 6.2 H Baso % (Auto) 0.4 Neut # (Auto) 2.9 Lymph # (Auto) 1.0 [place] # (Auto) 0.4 Eos # (Auto) 0.3 Baso # (Auto) 0.0 Sodium 138 Potassium 3.5 L Chloride 102 Carbon Dioxide 27 Anion Gap 13 BUN 14 Creatinine 0.5 L Est GFR ( Amer) > 60 Est GFR (Non-Af Amer) > 60 Random Glucose 90 Calcium 9.1 Total Bilirubin 0.5 AST 24 ALT 32 Alkaline Phosphatase 104 Total Protein 7.0 Albumin 3.8 Globulin 3.2 Albumin/Globulin Ratio 1.2 Urine Color Urine Clarity Urine pH Ur Specific [place] Urine Protein Urine Glucose (UA) Urine Ketones Urine Blood Urine Nitrate Urine Bilirubin Urine Urobilinogen Ur Leukocyte Esterase Urine RBC (Auto) Urine Microscopic WBC Ur Squamous Epith Cells Urine Bacteria Salicylates < 1.0 Urine Opiates Screen Urine Methadone Screen Acetaminophen < 10.0 L Ur Barbiturates Screen Ur Phencyclidine Scrn Ur Amphetamines Screen U Benzodiazepines Scrn U Oth Cocaine Metabols U Cannabinoids Screen Alcohol, Quantitative < 10 11/29/17 11/29/17 17:51 17:51 WBC RBC Hgb Hct MCV MCH MCHC RDW Plt Count MPV Neut % (Auto) Lymph % (Auto) [place] % (Auto) Eos % (Auto) Baso % (Auto) Neut # (Auto) Lymph # (Auto) [place] # (Auto) Eos # (Auto) Baso # (Auto) Sodium Potassium Chloride Carbon Dioxide Anion Gap BUN Creatinine Est GFR ( Amer) Est GFR (Non-Af Amer) Random Glucose Calcium Total Bilirubin AST ALT Alkaline Phosphatase Total Protein Albumin Globulin Albumin/Globulin Ratio Urine Color Yellow Urine Clarity Cloudy Urine pH 5.0 Ur Specific [place] 1.024 Urine Protein Negative Urine Glucose (UA) Neg Urine Ketones Negative Urine Blood Negative Urine Nitrate Positive H Urine Bilirubin Negative Urine Urobilinogen 0.2-1.0 Ur Leukocyte Esterase Trace Urine RBC (Auto) 1 Urine Microscopic WBC 8 H Ur Squamous Epith Cells 2 Urine Bacteria Rare Salicylates Urine Opiates Screen Negative Urine Methadone Screen Negative Acetaminophen Ur Barbiturates Screen Negative Ur Phencyclidine Scrn Negative Ur Amphetamines Screen Negative U Benzodiazepines Scrn Negative U Oth Cocaine Metabols Negative U Cannabinoids Screen Negative Alcohol, Quantitative
[2017-11-30 02:42] VITALS: BP 124/71; TEMP 98.4
[2017-11-30 02:47] VITALS: O2SAT 95
--- NOTE | 2017-11-30 08:55 | RAD ---
HISTORY: clearance COMPARISON: CT chest without contrast from 02/10/2017. FINDINGS: LUNGS: The lungs are well inflated and clear. PLEURA: No significant pleural effusion identified, no pneumothorax apparent. CARDIOVASCULAR: Normal. OSSEOUS STRUCTURES: No significant abnormalities. VISUALIZED UPPER ABDOMEN: Normal. OTHER FINDINGS: None. IMPRESSION: No active pulmonary disease.
--- NOTE | 2017-11-30 21:48 | CARD ---
APPROVED REPORT EKG Measurement Heart [id number] 138P10 [id number] <Conclusion> Normal sinus rhythm Prolonged QT Abnormal ECG
== END 2017-11-30 03:39 | disposition home or self-care (01) ==
LOC: H.ER 15:46
DX: F31.9 Bipolar disorder, unspecified (principal); N39.0 Urinary tract infection, site not specified; F41.9 Anxiety disorder, unspecified; I10 Essential (primary) hypertension; J45.909 Unspecified asthma, uncomplicated; F17.200 Nicotine dependence, unspecified, uncomplicated